=== PATIENT | male | born 1975 | race African-American/Black ===

== ENCOUNTER → 2018-04-27 | Outpatient (CLI) | payer MEDICARE, MEDICAID ==
[~2018-04-27] MED LIST: CALC-1038 PO; CARB200T6 PO
== END | disposition home or self-care (01) ==
LOC: RADPV 09:20
PROVIDERS: ATTEND Family Medicine
DX: M81.0 Age-related osteoporosis without current pathological fracture (principal)
CPT/HCPCS: 77080

== ENCOUNTER 2018-09-21 06:58 | Day surgery (SDC) | payer OTHER, MEDICARE, MEDICAID ==
[~2018-09-21] VITALS: Ht 170.2 cm; Wt 48.2 kg
[~2018-09-21 06:58] MED LIST changes: +ACET-784 PO; +ACET325T47 PO; +ALEN70TA48 PO; +AMPICILLIN SODIUM 1 GM/VIAL ONE; +ASCO500 PO; +BISA10SU22 PR; +CETI-290 PO; +GLYC1TAB11 PO; +MOM30 PO; +MULT-723 PO; +POLY17PO20 PO; +RINGERS SOLUTION,LACTATED 1,000 ML IV ONE; +VITAD1000 PO; +[UNRECOGNIZED DRUG - CODE] PO
[2018-09-21] MEDS ORDERED: LIDOCAINE/PF 2% 5 ML VIAL IM ONE (06:59)
[2018-09-21] MEDS ORDERED: DEXAMETHASONE SOD PHOS 4 MG/ML VIAL IVP ONE (06:59)
[2018-09-21] MEDS ORDERED: FentaNYL CITRATE-PF 100 MCG/2 ML VIAL IVP ONE (06:59)
[2018-09-21] MEDS ORDERED: KETAMINE HCL 50 MG/ML 10 ML VIAL IVP ONE (06:59)
[2018-09-21] MEDS ORDERED: PROPOFOL 1% 20 ML VIAL IVP ONE (06:59)
[2018-09-21] MEDS ORDERED: 0.9% SODIUM CHLORIDE 10 ML VIAL IVP ONE (06:59)
[2018-09-21] MEDS ORDERED: ONDANSETRON HCL 4 MG/2 ML VIAL IVP ONE (06:59)
[2018-09-21] MEDS ORDERED: EPHEDrine SULFATE 50 MG/ML VIAL IM ONE (06:59)
[2018-09-21] MEDS ORDERED: SUCCINYLCHOLINE CHLORIDE 20 MG/ML 10 ML VIAL IVP ONE (06:59)
[2018-09-21] MEDS ORDERED: HYDROmorphone 2 MG/ML SYRINGE IVP PRN (11:30)
[2018-09-21] MEDS ORDERED: FentaNYL CITRATE-PF 100 MCG/2 ML VIAL IVP PRN (11:30)
[2018-09-21] MEDS ORDERED: MEPERIDINE-PF 25 MG/ML VIAL IVP PRN (11:30)
[2018-09-21] MEDS ORDERED: OXYGEN THERAPY IH SCH (20:00)
== END 2018-09-21 13:00 | disposition home or self-care (01) ==
LOC: SURGERY 06:58
PROVIDERS: ATTEND Dentist General Practice
DX: K05.30 Chronic periodontitis, unspecified (principal); K04.7 Periapical abscess without sinus; M81.0 Age-related osteoporosis without current pathological fracture; F73 Profound intellectual disabilities; H54.7 Unspecified visual loss; H91.8X3 Other specified hearing loss, bilateral; Z86.69 Personal history of other diseases of the nervous system and sense organs; Z79.891 Long term (current) use of opiate analgesic; Z79.899 Other long term (current) drug therapy
CPT/HCPCS: 41899; 93005; J0290; J0330; J1100; J2405; J2704; J3010; J3490 ×3; J7120

== ENCOUNTER 2020-09-06 11:07 | Emergency (ER) | payer MEDICARE, MEDICAID ==
[~2020-09-06] VITALS: Ht 147.3 cm; Wt 53.0 kg
[~2020-09-06 11:07] MED LIST changes: -ACET325T47 PO; -ALEN70TA48 PO; +ALEN70TA65 PO; -AMPICILLIN SODIUM 1 GM/VIAL ONE; -CETI-290 PO; +CETI-450 PO; +CHOL100018 PO; -RINGERS SOLUTION,LACTATED 1,000 ML IV ONE; -VITAD1000 PO
[2020-09-06] MEDS ORDERED: LevETIRAcetam 1,000 MG in DEXTROSE 5%-WATER 100 ML IV ONE (11:15)
[2020-09-06 11:55] LABS: BASOPHILS % (AUTO) 0.4 % (0.0-2.0); EOSINOPHILS % (AUTO) 0.7 % (1.0-6.0); HEMATOCRIT 46.5 % (41-53); HEMOGLOBIN 15.5 g/dL (13.5-17.5); LYMPHOCYTES # (AUTO) 1.4 K/uL (1.0-4.8); LYMPHOCYTES % (AUTO) 10.6 % (22.0-44.0); MEAN CORPUSCULAR HEMOGLOBIN 31.9 pg (26.0-34.0); MEAN CORPUSCULAR HGB CONC 33.3 G/dL (31.0-37.0); MEAN CORPUSCULAR VOLUME 96 fL (80-100); MONOCYTES # (AUTO) 0.7 K/uL (0.1-1.0); MONOCYTES % (AUTO) 5.4 % (2.0-9.0); NEUTROPHILS # (AUTO) 11.1 K/uL (1.8-7.7); NEUTROPHILS % (AUTO) 82.9 % (40.0-70.0); PLATELET COUNT (AUTO) 297 K/uL (150-450); RED BLOOD CELL COUNT(AUTO) 4.85 MIL/uL (4.50-5.90); RED CELL DISTRIBUTION WIDTH 13.3 % (11.5-14.5)
[2020-09-06 12:05] LABS: ANION GAP 8 mmol/L (8-16); CALCIUM, TOTAL 8.8 mg/dL (8.8-10.5); CARBON DIOXIDE 26 mmol/L (22-29); CHLORIDE 105 mmol/L (98-107); CREATININE 0.99 mg/dL (0.60-1.30); GLOMERULAR FILTR. RATE CALC > 60 mL/min (>60); GLUCOSE,RANDOM 120 mg/dL (70-110); POTASSIUM 3.7 mmol/L (3.5-5.1); SODIUM SERUM 139 mmol/L (136-145); UREA NITROGEN, BLOOD 14 mg/dL (7-18)
[2020-09-06] MEDS ORDERED: SODIUM CHLORIDE 0.9% 1,000 ML IV ONE (12:15)
[2020-09-06 12:30] LABS: ALANINE AMINOTRANSFERASE 25 U/L (12-78); ALBUMIN 3.4 g/dL (3.4-5.0); ALKALINE PHOSPHATASE 71 U/L (46-116); ASPARTATE AMINOTRANSFERASE 19 U/L (15-37); BILIRUBIN,TOTAL 0.1 mg/dL (0.1-1.0); CARBAMAZEPINE (TEGRETOL) 6.3 mcg/mL (4.0-12.0); CREATINE KINASE, TOTAL ONLY 141 U/L (39-308); TOTAL PROTEIN, SERUM 8.3 g/dL (6.4-8.2)
[2020-09-06 12:33] LABS: B-TYPE NATRIURETIC PEPTIDE < 5 pg/mL (0-100)
[2020-09-06 14:30] VITALS: BP 115/75
== END 2020-09-06 15:00 | disposition home or self-care (01) ==
LOC: EMS 11:14
DX: G40.909 Epilepsy, unspecified, not intractable, without status epilepticus (principal)
CPT/HCPCS: 36415; 71045; 80053; 80156; 82550; 83880; 84484; 85025; 93005; 96361; 96365; 99285; J0712; J7030; J7060

== ENCOUNTER 2022-03-06 06:09 | Day surgery (SDC) | payer OTHER, MEDICARE, MEDICAID ==
[~2022-03-06 06:09] MED LIST changes: +BISA10SU11 PR; -BISA10SU22 PR; -CHOL100018 PO; +CHOL25TA4 PO; -GLYC1TAB11 PO; +GLYC1TAB27 PO; +LEVE500T20 PO; +MAGN-169 PO; -MOM30 PO; +MULT-413 PO; -MULT-723 PO
[2022-03-06] MEDS ORDERED: RINGERS SOLUTION,LACTATED 1,000 ML IV ONE ×2 (07:00→07:22)
[2022-03-06 07:36] LABS: COVID AG,FIA SOURCE NASAL SWAB
[2022-03-06 07:56] LABS: BASOPHILS % (AUTO) 0.5 % (0.0-2.0); HEMATOCRIT 46.4 % (41-53); HEMOGLOBIN 15.4 g/dL (13.5-17.5); LYMPHOCYTES # (AUTO) 1.9 K/uL (1.0-4.8); LYMPHOCYTES % (AUTO) 54.1 % (22.0-44.0); MEAN CORPUSCULAR HEMOGLOBIN 32.2 pg (26.0-34.0); MEAN CORPUSCULAR HGB CONC 33.3 G/dL (31.0-37.0); MEAN CORPUSCULAR VOLUME 97 fL (80-100); MONOCYTES # (AUTO) 0.4 K/uL (0.1-1.0); MONOCYTES % (AUTO) 10.8 % (2.0-9.0); NEUTROPHILS # (AUTO) 1.1 K/uL (1.8-7.7); NEUTROPHILS % (AUTO) 29.6 % (40.0-70.0); PLATELET COUNT (AUTO) 252 K/uL (150-450); RED BLOOD CELL COUNT(AUTO) 4.79 MIL/uL (4.50-5.90); RED CELL DISTRIBUTION WIDTH 12.6 % (11.5-14.5)
[2022-03-06 08:06] LABS: INR 1.1 (0.9-1.1); PROTHROMBIN TIME 11.2 SEC (9.4-11.6)
[2022-03-06 08:07] LABS: ANION GAP 5 mmol/L (8-16); CALCIUM, TOTAL 8.8 mg/dL (8.8-10.5); CARBON DIOXIDE 32 mmol/L (22-29); CHLORIDE 104 mmol/L (98-107); CREATININE 0.73 mg/dL (0.60-1.30); GLOMERULAR FILTR. RATE CALC > 60 mL/min (>60); GLUCOSE,RANDOM 82 mg/dL (70-110); POTASSIUM 4.4 mmol/L (3.5-5.1); SODIUM SERUM 141 mmol/L (136-145); UREA NITROGEN, BLOOD 10 mg/dL (7-18)
[2022-03-06 08:13] LABS: ALANINE AMINOTRANSFERASE 25 U/L (12-78); ALBUMIN 3.7 g/dL (3.4-5.0); ALKALINE PHOSPHATASE 83 U/L (46-116); ASPARTATE AMINOTRANSFERASE 22 U/L (15-37); BILIRUBIN,TOTAL 0.3 mg/dL (0.1-1.0); TOTAL PROTEIN, SERUM 8.2 g/dL (6.4-8.2)
[2022-03-06] MEDS ORDERED: AMPICILLIN SODIUM 2 GM/NS 100 ML IV ONE ×2 (08:28→08:30)
[2022-03-06] MEDS ORDERED: AMPICILLIN SODIUM 2 GM/NS 100 ML BAG IV ONE (11:10)
[2022-03-06] MEDS ORDERED: LIDOCAINE/PF 2% 5 ML VIAL IM ONE (12:00)
[2022-03-06] MEDS ORDERED: PROPOFOL 1% 20 ML VIAL IVP ONE (12:00)
[2022-03-06] MEDS ORDERED: ROCURONIUM BROMIDE 10 MG/ML 5 ML VIAL IVP ONE (12:00)
[2022-03-06] MEDS ORDERED: MIDAZOLAM HCL 2 MG/2 ML VIAL IVP ONE (12:00)
[2022-03-06] MEDS ORDERED: FentaNYL CITRATE PF 100 MCG/2 ML VIAL IVP ONE (12:00)
[2022-03-06] MEDS ORDERED: ONDANSETRON HCL 4 MG/2 ML VIAL IVP ONE (12:00)
== END 2022-03-06 13:30 | disposition home or self-care (01) ==
LOC: SURGERY 06:09
PROVIDERS: ATTEND Dentist General Practice
DX: K02.9 Dental caries, unspecified (principal); K03.6 Deposits [accretions] on teeth; K05.30 Chronic periodontitis, unspecified; G40.909 Epilepsy, unspecified, not intractable, without status epilepticus; K21.9 Gastro-esophageal reflux disease without esophagitis; I10 Essential (primary) hypertension; H54.7 Unspecified visual loss; H91.90 Unspecified hearing loss, unspecified ear; Z79.899 Other long term (current) drug therapy; Z98.890 Other specified postprocedural states; Z79.01 Long term (current) use of anticoagulants
CPT/HCPCS: 36415; 41899; 71045; 80053; 85025; 85610; 85730; 87426; 93005; C9803; J0290; J2250; J2405; J2704; J3010; J3490 ×2; J7120

== ENCOUNTER 2023-12-24 06:09 | Day surgery (SDC) | payer OTHER, MEDICARE, MEDICAID ==
[~2023-12-24 06:09] MED LIST changes: +CARB-92 PO; -CARB200T6 PO
[2023-12-24] MEDS ORDERED: AMPICILLIN SODIUM 2 GM/NS 100 ML IV ONE (07:46)
[2023-12-24] MEDS ORDERED: RINGERS SOLUTION,LACTATED 1,000 ML IV ONE (08:00)
[2023-12-24 08:16] LABS: BASOPHILS % (AUTO) 1.2 % (0.0-2.0); EOSINOPHILS % (AUTO) 8.7 % (1.0-6.0); HEMATOCRIT 40.5 % (41-53); HEMOGLOBIN 13.2 g/dL (13.5-17.5); LYMPHOCYTES # (AUTO) 1.9 K/uL (1.0-4.8); LYMPHOCYTES % (AUTO) 47.4 % (22.0-44.0); MEAN CORPUSCULAR HGB CONC 32.6 G/dL (31.0-37.0); MEAN CORPUSCULAR VOLUME 95 fL (80-100); MONOCYTES # (AUTO) 0.4 K/uL (0.1-1.0); MONOCYTES % (AUTO) 10.4 % (2.0-9.0); NEUTROPHILS # (AUTO) 1.3 K/uL (1.8-7.7); NEUTROPHILS % (AUTO) 32.3 % (40.0-70.0); PLATELET COUNT (AUTO) 324 K/uL (150-450); RED BLOOD CELL COUNT(AUTO) 4.26 MIL/uL (4.50-5.90); RED CELL DISTRIBUTION WIDTH 13.3 % (11.5-14.5); WHITE BLOOD COUNT (AUTO) 3.9 K/uL (4.5-11.0)
[2023-12-24 08:26] LABS: ANION GAP 7 mmol/L (8-16); CALCIUM, TOTAL 9.1 mg/dL (8.8-10.5); CARBON DIOXIDE 30 mmol/L (22-29); CHLORIDE 103 mmol/L (98-107); CREATININE 0.81 mg/dL (0.60-1.30); GLOMERULAR FILTR. RATE CALC > 60 mL/min (>60); GLUCOSE,RANDOM 75 mg/dL (70-110); POTASSIUM 4.7 mmol/L (3.5-5.1); SODIUM SERUM 140 mmol/L (136-145); UREA NITROGEN, BLOOD 15 mg/dL (7-18)
[2023-12-24 08:29] LABS: INR 1.1 (0.9-1.1); PROTHROMBIN TIME 11.2 SEC (9.4-11.6)
[2023-12-24 08:32] LABS: ALANINE AMINOTRANSFERASE 24 U/L (12-78); ALBUMIN 3.7 g/dL (3.4-5.0); ALKALINE PHOSPHATASE 91 U/L (46-116); ASPARTATE AMINOTRANSFERASE 24 U/L (15-37); BILIRUBIN,TOTAL 0.2 mg/dL (0.1-1.0); TOTAL PROTEIN, SERUM 8.1 g/dL (6.4-8.2)
[2023-12-24] MEDS ORDERED: SUGAMMADEX SODIUM 200 MG/2 ML VIAL IVP ONE (12:00)
[2023-12-24] MEDS ORDERED: ROCURONIUM BROMIDE 10 MG/ML 5 ML VIAL IVP ONE (12:00)
[2023-12-24] MEDS ORDERED: DEXAMETHASONE SOD PHOS 4 MG/ML VIAL IVP ONE (12:00)
[2023-12-24] MEDS ORDERED: LIDOCAINE/PF 2% 5 ML VIAL IM ONE (12:00)
[2023-12-24] MEDS ORDERED: PROPOFOL 1% 20 ML VIAL IVP ONE (12:00)
[2023-12-24] MEDS ORDERED: ONDANSETRON HCL 4 MG/2 ML VIAL IVP ONE (12:00)
== END 2023-12-24 10:55 | disposition home or self-care (01) ==
LOC: SURGERY 06:09
PROVIDERS: ATTEND Dentist General Practice
DX: K05.30 Chronic periodontitis, unspecified (principal); K03.6 Deposits [accretions] on teeth; K21.9 Gastro-esophageal reflux disease without esophagitis; I10 Essential (primary) hypertension; H91.90 Unspecified hearing loss, unspecified ear; Z79.899 Other long term (current) drug therapy; Z79.01 Long term (current) use of anticoagulants; G43.909 Migraine, unspecified, not intractable, without status migrainosus; M81.0 Age-related osteoporosis without current pathological fracture; Z98.890 Other specified postprocedural states
CPT/HCPCS: 41899; 71045; 80053; 85025; 85610; 85730; 36415; 93005; J0290; J2704; J1100; J3490 ×2; J2405; Q9967

== ENCOUNTER 2024-11-01 22:26 | Inpatient (IN) | payer OTHER ==
[~2024-11-01] VITALS: Ht 157.5 cm; Wt 40.9 kg
[~2024-11-01 22:26] MED LIST changes: +LEVE-71 PO; -LEVE500T20 PO
[2024-11-01 23:07] LABS: COVID AG,FIA SOURCE NASAL SWAB
[2024-11-01 23:34] LABS: SARS-COV2 (COVID) ANTIGEN,FIA Negative (Negative)
[2024-11-01 23:35] LABS: INFLUENZA TYPE B NEGATIVE FOR TYPE B (NEGATIVE)
[2024-11-01] MEDS ORDERED: 0.9% SODIUM CHLORIDE 10 ML SYRINGE IVP PRN (23:45)
[2024-11-01 23:58] LABS: INFLUENZA TYPE A POSITIVE FOR TYPE A (NEGATIVE)
[2024-11-02 00:05] LABS: LYMPHOCYTES # (AUTO) 1.1 K/uL (1.0-4.8); LYMPHOCYTES % (AUTO) 22.3 % (22.0-44.0); MONOCYTES # (AUTO) 0.7 K/uL (0.1-1.0); NEUTROPHILS # (AUTO) 3.1 K/uL (1.8-7.7)
[2024-11-02 00:07] LABS: BASOPHILS % (AUTO) 0.4 % (0.0-2.0); EOSINOPHILS % (AUTO) 0.2 % (1.0-6.0); HEMATOCRIT 42.3 % (41-53); HEMOGLOBIN 13.7 g/dL (13.5-17.5); MEAN CORPUSCULAR HEMOGLOBIN 28.1 pg (26.0-34.0); MEAN CORPUSCULAR HGB CONC 32.5 G/dL (31.0-37.0); MEAN CORPUSCULAR VOLUME 87 fL (80-100); MONOCYTES % (AUTO) 13.6 % (2.0-9.0); NEUTROPHILS % (AUTO) 63.5 % (40.0-70.0); PLATELET COUNT (AUTO) 279 K/uL (150-450); RED BLOOD CELL COUNT(AUTO) 4.88 MIL/uL (4.50-5.90); RED CELL DISTRIBUTION WIDTH 20.1 % (11.5-14.5); WHITE BLOOD COUNT (AUTO) 4.9 K/uL (4.5-11.0)
[2024-11-02 00:19] LABS: PROTHROMBIN TIME 11.5 SEC (9.4-11.6)
[2024-11-02 00:24] LABS: ANION GAP 9 mmol/L (8-16); CALCIUM, TOTAL 8.8 mg/dL (8.8-10.5); CARBON DIOXIDE 29 mmol/L (22-29); CHLORIDE 102 mmol/L (98-107); CREATININE 1.17 mg/dL (0.60-1.30); GLOMERULAR FILTR. RATE CALC > 60 mL/min (>60); GLUCOSE,RANDOM 94 mg/dL (70-110); POTASSIUM 3.9 mmol/L (3.5-5.1); SODIUM SERUM 140 mmol/L (136-145); UREA NITROGEN, BLOOD 10 mg/dL (7-18)
[2024-11-02 00:30] LABS: LACTIC ACID 2.7 mmol/L (0.4-2.0)
[2024-11-02] MEDS ORDERED: ACETAMINOPHEN 325 MG TABLET PO PRN (00:30)
[2024-11-02] MEDS ORDERED: ALBUTEROL SULFATE 2.5 MG/0.5 ML NEB SOLUTION NEB PRN (00:30)
[2024-11-02] MEDS ORDERED: IPRATROPIUM BROMIDE 0.5 MG/2.5 ML NEB SOLUTION NEB PRN (00:30)
[2024-11-02] MEDS: CefTRIAXone 1 GM/DEXTROSE 50 ML IV ONE (01:37)
[2024-11-02] MEDS: SODIUM CHLORIDE 0.9% 2,100 ML IV ONE (01:37)
[2024-11-02 02:15] LABS: APPEARANCE,URINE CLEAR (CLEAR); BILIRUBIN,URINE NEGATIVE (NEGATIVE); COLOR,URINE YELLOW (YELLOW); GLUCOSE, URINE (UA) NEGATIVE (NEGATIVE); KETONES,URINE 40-60 mg/dL (NEGATIVE); LEUKOCYTE ESTERASE ,URINE NEGATIVE (NEGATIVE); NITRATE,URINE NEGATIVE (NEGATIVE); OCCULT BLOOD,URINE SMALL (NEGATIVE); PROTEIN,URINE 30-70 mg/dL (NEGATIVE); SPECIFIC GRAVITIY, URINE 1.037 (1.003-1.030); UROBILINOGEN,URINE <=1.0 mg/dL (<=1.0)
[2024-11-02 03:03] LABS: BACTERIA,URINE None Seen /HPF (None Seen); SQUAMOUS EPITHELIAL CELL,UR Few /LPF (None Seen); WBC,URINE None Seen /HPF (0-5)
[2024-11-02] MEDS ORDERED: MAGNESIUM HYDROXIDE SUSPENSION 30 ML UDCUP PO PRN (07:00)
[2024-11-02] MEDS ORDERED: OSELTAMIVIR PHOSPHATE 75 MG CAPSULE PO SCH (09:00)
[2024-11-02 09:48] VITALS: BP 144/80; PULSE 82; RESP 16; TEMP 98.2; O2SAT 98
[2024-11-02] MEDS: ASCORBIC ACID 500 MG TABLET PO SCH (11:00)
[2024-11-02] MEDS: RINGERS SOLUTION,LACTATED 1,000 ML IV SCH (11:00)
[2024-11-02] MEDS: LevETIRAcetam 500 MG TABLET PO SCH (11:00)
[2024-11-02] MEDS: CHOLECALCIFEROL (VIT D3) 1,000 UNITS [25 MCG] TABLET PO SCH (11:01)
[2024-11-02] MEDS: CarBAMazepine 200 MG TABLET PO SCH ×2 (11:31→21:00)
[2024-11-02] MEDS: CETIRIZINE HCL 10 MG TABLET PO SCH (11:32)
[2024-11-02] MEDS: OSELTAMIVIR PHOSPHATE 30 MG CAPSULE PO SCH (11:32)
[2024-11-02] MEDS: GLYCOPYRROLATE 1 MG TABLET PO SCH ×2 (11:32→21:00)
[2024-11-02 16:11] VITALS: BP 146/82; PULSE 88; RESP 18; TEMP 98; O2SAT 98
[2024-11-02] MEDS: CALCIUM [CALCIUM CARB 1250MG] 500 MG TABLET PO SCH (21:00)
[2024-11-02 21:25] VITALS: BP 149/90; PULSE 90; RESP 20; TEMP 97.9; O2SAT 99
[2024-11-02] MEDS: LevETIRAcetam 500 MG in DEXTROSE 5%-WATER 100 ML IV SCH (22:05)
[2024-11-03] MEDS: CefTRIAXone 1 GM/DEXTROSE 50 ML IV SCH (00:32)
[2024-11-03 06:08] VITALS: BP 146/74; PULSE 68; RESP 20; TEMP 97.8; O2SAT 100
[2024-11-03 07:23] LABS: HEMATOCRIT 38.8 % (41-53); HEMOGLOBIN 12.8 g/dL (13.5-17.5); MEAN CORPUSCULAR HEMOGLOBIN 28.5 pg (26.0-34.0); MEAN CORPUSCULAR HGB CONC 33.1 G/dL (31.0-37.0); MEAN CORPUSCULAR VOLUME 86 fL (80-100); PLATELET COUNT (AUTO) 234 K/uL (150-450); RED BLOOD CELL COUNT(AUTO) 4.51 MIL/uL (4.50-5.90); RED CELL DISTRIBUTION WIDTH 19.4 % (11.5-14.5); WHITE BLOOD COUNT (AUTO) 3.7 K/uL (4.5-11.0)
[2024-11-03 07:31] LABS: ANION GAP 8 mmol/L (8-16); CALCIUM, TOTAL 8.2 mg/dL (8.8-10.5); CARBON DIOXIDE 27 mmol/L (22-29); CHLORIDE 106 mmol/L (98-107); CREATININE 0.81 mg/dL (0.60-1.30); GLOMERULAR FILTR. RATE CALC > 60 mL/min (>60); GLUCOSE,RANDOM 92 mg/dL (70-110); POTASSIUM 3.6 mmol/L (3.5-5.1); SODIUM SERUM 141 mmol/L (136-145); UREA NITROGEN, BLOOD 8 mg/dL (7-18)
[2024-11-03 08:16] VITALS: BP 129/75; PULSE 72; RESP 18; TEMP 97.8; O2SAT 99
[2024-11-03 08:16] LABS: BAND NEUTROPHILS % (MANUAL) 1 % (0-5); LYMPHOCYTES % (MANUAL) 41 % (22-44); MONOCYTES % (MANUAL) 13 % (2-9); RBC MORPHOLOGY COMMENT NORMAL RBC MORPH; SEGMENTED NEUTROPHILS % 45 % (40-70); TOTAL CELLS COUNTED 100
[2024-11-03] MEDS ORDERED: SODIUM CHLORIDE 0.9% 0 ML ONE ×2 (14:37→23:12)
[2024-11-03] MEDS: 1: MAGNESIUM SULFATE 2 GM, MVI, ADULT NO.1 WITH VIT K 10 ML, THIAMINE 100 MG, FOLIC ACID IV SCH (14:40)
[2024-11-03 16:41] VITALS: BP 134/76; PULSE 76; RESP 20; TEMP 97.9; O2SAT 96
[2024-11-03 19:50] VITALS: BP 137/85; PULSE 62; RESP 18; TEMP 97.4; O2SAT 96
[2024-11-04 04:00] VITALS: BP 154/74; PULSE 55; RESP 18; TEMP 97.7; O2SAT 100
[2024-11-04 08:42] VITALS: BP 137/83; PULSE 55; RESP 18; TEMP 98.2; O2SAT 100
[2024-11-04 19:47] VITALS: BP 135/59; PULSE 51; RESP 18; TEMP 97.4; O2SAT 96
[2024-11-04] MEDS ORDERED: SODIUM CHLORIDE 0.9% 1,000 ML ONE (21:03)
[2024-11-05 04:00] VITALS: BP 158/80; PULSE 58; RESP 20; TEMP 97.7; O2SAT 100
[2024-11-05 08:17] VITALS: BP 141/74; PULSE 56; RESP 18; TEMP 97; O2SAT 99
[2024-11-05] MEDS ORDERED: SODIUM CHLORIDE 0.9% 500 ML IV ONE (09:18)
[2024-11-05] MEDS ORDERED: ATOR20TA65 PO (11:44)
[2024-11-05] MEDS ORDERED: LANS30TA15 PO (11:44)
[2024-11-05] MEDS ORDERED: LEVE10006 PO (11:44)
[2024-11-05] MEDS ORDERED: GABA-529 PO (11:44)
[2024-11-05] MEDS ORDERED: IPRA15SP4 NASAL (11:44)
[2024-11-05] MEDS ORDERED: FLUT16H NASAL (11:44)
[2024-11-05] MEDS: AmLODIPine BESYLATE 5 MG TABLET PO SCH (11:45)
[2024-11-05] MEDS: DEXTROSE 5%-0.45% SODIUM CHL 1,000 ML IV SCH (17:29)
[2024-11-05 17:57] VITALS: BP 128/80; PULSE 53; RESP 18; TEMP 97.9; O2SAT 92
[2024-11-05 19:35] VITALS: BP 140/67; PULSE 60; RESP 18; TEMP 97.7; O2SAT 97
[2024-11-06 04:25] VITALS: BP 144/75; PULSE 58; RESP 19; TEMP 97.7; O2SAT 100
[2024-11-06 07:38] LABS: HEMATOCRIT 38.8 % (41-53); HEMOGLOBIN 12.7 g/dL (13.5-17.5); MEAN CORPUSCULAR HEMOGLOBIN 28.1 pg (26.0-34.0); MEAN CORPUSCULAR HGB CONC 32.9 G/dL (31.0-37.0); MEAN CORPUSCULAR VOLUME 86 fL (80-100); PLATELET COUNT (AUTO) 250 K/uL (150-450); RED BLOOD CELL COUNT(AUTO) 4.53 MIL/uL (4.50-5.90); RED CELL DISTRIBUTION WIDTH 18.7 % (11.5-14.5); WHITE BLOOD COUNT (AUTO) 2.3 K/uL (4.5-11.0)
[2024-11-06 07:52] LABS: ANION GAP 9 mmol/L (8-16); CALCIUM, TOTAL 8.5 mg/dL (8.8-10.5); CARBON DIOXIDE 29 mmol/L (22-29); CHLORIDE 104 mmol/L (98-107); CREATININE 0.79 mg/dL (0.60-1.30); GLOMERULAR FILTR. RATE CALC > 60 mL/min (>60); GLUCOSE,RANDOM 94 mg/dL (70-110); POTASSIUM 3.3 mmol/L (3.5-5.1); SODIUM SERUM 142 mmol/L (136-145); UREA NITROGEN, BLOOD 3 mg/dL (7-18)
[2024-11-06 08:37] LABS: BAND NEUTROPHILS % (MANUAL) 0 % (0-5)
[2024-11-06 08:45] LABS: BASOPHILS % (MANUAL) 2 % (0-2); EOSINOPHILS % (MANUAL) 1 % (1-6); LYMPHOCYTES % (MANUAL) 35 % (22-44); MONOCYTES % (MANUAL) 7 % (2-9); REACTIVE LYMPHOCYTES 10 % (0-0); SEGMENTED NEUTROPHILS % 45 % (40-70); TOTAL CELLS COUNTED 100
[2024-11-06 09:48] VITALS: BP 140/76; PULSE 47; PULSE 77; RESP 20; TEMP 97.2; O2SAT 100
[2024-11-06] MEDS: MEGESTROL ACETATE 40 MG TABLET PO SCH (14:37)
[2024-11-06 17:25] VITALS: BP 158/78; PULSE 50; RESP 18; TEMP 97.6; O2SAT 100
[2024-11-06 20:03] VITALS: BP 141/75; PULSE 55; RESP 17; TEMP 97.5; O2SAT 99
[2024-11-07 04:46] VITALS: BP 129/74; PULSE 54; RESP 18; TEMP 97.2; O2SAT 99
[2024-11-07 08:55] LABS: BASOPHILS % (AUTO) 1.2 % (0.0-2.0); EOSINOPHILS % (AUTO) 6.2 % (1.0-6.0); HEMATOCRIT 38.1 % (41-53); HEMOGLOBIN 12.4 g/dL (13.5-17.5); LYMPHOCYTES # (AUTO) 1.8 K/uL (1.0-4.8); LYMPHOCYTES % (AUTO) 53.9 % (22.0-44.0); MEAN CORPUSCULAR HEMOGLOBIN 27.9 pg (26.0-34.0); MEAN CORPUSCULAR HGB CONC 32.5 G/dL (31.0-37.0); MEAN CORPUSCULAR VOLUME 86 fL (80-100); MONOCYTES # (AUTO) 0.3 K/uL (0.1-1.0); MONOCYTES % (AUTO) 9.1 % (2.0-9.0); NEUTROPHILS % (AUTO) 29.6 % (40.0-70.0); PLATELET COUNT (AUTO) 283 K/uL (150-450); RED BLOOD CELL COUNT(AUTO) 4.44 MIL/uL (4.50-5.90); WHITE BLOOD COUNT (AUTO) 3.4 K/uL (4.5-11.0)
[2024-11-07 09:08] LABS: ANION GAP 6 mmol/L (8-16); CALCIUM, TOTAL 8.2 mg/dL (8.8-10.5); CARBON DIOXIDE 30 mmol/L (22-29); CHLORIDE 105 mmol/L (98-107); CREATININE 0.77 mg/dL (0.60-1.30); GLOMERULAR FILTR. RATE CALC > 60 mL/min (>60); GLUCOSE,RANDOM 91 mg/dL (70-110); POTASSIUM 3.3 mmol/L (3.5-5.1); SODIUM SERUM 141 mmol/L (136-145); UREA NITROGEN, BLOOD 3 mg/dL (7-18)
[2024-11-07 18:51] VITALS: BP 95/56; PULSE 68; RESP 16; TEMP 99; O2SAT 99
[2024-11-07 19:55] VITALS: BP 106/59; PULSE 65; RESP 18; TEMP 97.7; O2SAT 100
[2024-11-08 04:45] VITALS: BP 132/73; PULSE 54; RESP 18; TEMP 97.8; O2SAT 100
[2024-11-08 06:45] LABS: BASOPHILS % (AUTO) 0.8 % (0.0-2.0); EOSINOPHILS % (AUTO) 5.3 % (1.0-6.0); HEMATOCRIT 36.6 % (41-53); HEMOGLOBIN 11.9 g/dL (13.5-17.5); LYMPHOCYTES # (AUTO) 1.8 K/uL (1.0-4.8); LYMPHOCYTES % (AUTO) 42.2 % (22.0-44.0); MEAN CORPUSCULAR HEMOGLOBIN 27.6 pg (26.0-34.0); MEAN CORPUSCULAR HGB CONC 32.5 G/dL (31.0-37.0); MEAN CORPUSCULAR VOLUME 85 fL (80-100); MONOCYTES # (AUTO) 0.3 K/uL (0.1-1.0); MONOCYTES % (AUTO) 7.5 % (2.0-9.0); NEUTROPHILS # (AUTO) 1.9 K/uL (1.8-7.7); NEUTROPHILS % (AUTO) 44.2 % (40.0-70.0); PLATELET COUNT (AUTO) 296 K/uL (150-450); RED BLOOD CELL COUNT(AUTO) 4.31 MIL/uL (4.50-5.90); RED CELL DISTRIBUTION WIDTH 18.4 % (11.5-14.5); WHITE BLOOD COUNT (AUTO) 4.4 K/uL (4.5-11.0)
[2024-11-08 07:03] LABS: ANION GAP 6 mmol/L (8-16); CALCIUM, TOTAL 8.1 mg/dL (8.8-10.5); CARBON DIOXIDE 29 mmol/L (22-29); CHLORIDE 104 mmol/L (98-107); CREATININE 0.75 mg/dL (0.60-1.30); GLOMERULAR FILTR. RATE CALC > 60 mL/min (>60); GLUCOSE,RANDOM 95 mg/dL (70-110); SODIUM SERUM 140 mmol/L (136-145); UREA NITROGEN, BLOOD 2 mg/dL (7-18)
[2024-11-08 08:55] VITALS: BP 119/69; PULSE 50; RESP 18; TEMP 97.7; O2SAT 99
[2024-11-08 17:00] VITALS: BP 128/55; PULSE 65; RESP 20; TEMP 99.1; O2SAT 98
[2024-11-08] MEDS: POLYETHYLENE GLYCOL 3350 17 GM PACKET PO PRN (21:22)
[2024-11-08 21:26] VITALS: BP 127/74; PULSE 61; RESP 18; TEMP 97.7; O2SAT 96
[2024-11-08] MEDS: POTASSIUM CHLORIDE 20 MEQ ER TABLET PO PRN (23:38)
[2024-11-09 05:26] VITALS: BP 136/74; PULSE 66; RESP 18; TEMP 97.8; O2SAT 100
[2024-11-09] MEDS ORDERED: ALENDRONATE SODIUM 70 MG TABLET PO SCH (06:30)
[2024-11-09] MEDS: BISACODYL 10 MG RECTAL RECTAL SUPPOSITORY PR PRN (11:19)
[2024-11-09 16:00] VITALS: BP 132/55; PULSE 54; RESP 18; TEMP 98.5; O2SAT 98
[2024-11-09 21:00] VITALS: BP 137/75; PULSE 77; RESP 18; TEMP 97.8; O2SAT 92
[2024-11-09] MEDS ORDERED: SODIUM CHLORIDE 0.9% 500 ML IV ONE (21:36)
[2024-11-10 07:58] VITALS: BP 137/70; PULSE 51; RESP 18; TEMP 98.1; O2SAT 100
[2024-11-10 14:20] LABS: ANION GAP 7 mmol/L (8-16); CALCIUM, TOTAL 8.1 mg/dL (8.8-10.5); CARBON DIOXIDE 29 mmol/L (22-29); CHLORIDE 104 mmol/L (98-107); CREATININE 0.79 mg/dL (0.60-1.30); GLOMERULAR FILTR. RATE CALC > 60 mL/min (>60); GLUCOSE,RANDOM 92 mg/dL (70-110); POTASSIUM 3.3 mmol/L (3.5-5.1); SODIUM SERUM 140 mmol/L (136-145); UREA NITROGEN, BLOOD 3 mg/dL (7-18)
[2024-11-10] MEDS: POTASSIUM CHL 10 MEQ/WATER 50 ML IV PRN (15:08)
[2024-11-10 16:09] VITALS: BP 131/68; PULSE 50; RESP 18; TEMP 96.4; O2SAT 100
[2024-11-10 20:58] VITALS: BP 140/57; PULSE 83; RESP 18; TEMP 98.5; O2SAT 96
[2024-11-11] MEDS ORDERED: SODIUM CHLORIDE 0.9% 1,000 ML ONE (05:52)
[2024-11-11] MEDS ORDERED: FLUMAZENIL 0.1 MG/ML 5 ML VIAL IVP ONE (06:43)
[2024-11-11] MEDS ORDERED: EPINEPHrine 1:10,000 [1 MG/10 ML] SYRINGE ONE (06:43)
[2024-11-11] MEDS ORDERED: NALOXONE HCL 0.4 MG/ML VIAL ONE (06:43)
[2024-11-11] MEDS ORDERED: DiphenhydrAMINE HCL 50 MG/ML VIAL ONE (06:43)
[2024-11-11] MEDS ORDERED: SODIUM TETRADECYL SULFATE 3% 60 MG/2 ML VIAL IVP ONE (06:43)
[2024-11-11] MEDS ORDERED: ATROPINE SULFATE 0.1 MG/ML 10 ML SYRINGE IVP ONE (06:44)
[2024-11-11] MEDS: SODIUM CHLORIDE 0.9% 1,000 ML IV ONE (06:50)
[2024-11-11 07:21] VITALS: BP 139/72; PULSE 73; RESP 18; TEMP 97.7; O2SAT 100
[2024-11-11] MEDS ORDERED: PROPOFOL 1% 20 ML VIAL IVP ONE (12:00)
[2024-11-11] MEDS ORDERED: LIDOCAINE/PF 2% 5 ML SYRINGE IVP ONE (12:00)
[2024-11-11] MEDS ORDERED: GLYCOPYRROLATE 0.2 MG/ML VIAL IM ONE (12:00)
[2024-11-11 15:54] VITALS: BP 162/77; PULSE 61; RESP 18; TEMP 98.1; O2SAT 99
[2024-11-11 19:44] VITALS: BP 136/76; PULSE 55; RESP 18; TEMP 98; O2SAT 98
[2024-11-11] MEDS: LevETIRAcetam 500 MG TABLET PEG SCH (21:21)
[2024-11-12 05:21] VITALS: BP 142/88; PULSE 63; RESP 18; TEMP 97.9; O2SAT 100
[2024-11-12 07:58] VITALS: BP 162/69; PULSE 54; RESP 18; TEMP 98.1; O2SAT 100
== END 2024-11-12 09:00 | DRG 871 ==
LOC: EMS 11-02 06:02 → EDH 11-02 06:53 → 6S 11-02 10:21 → 4E 11-05 16:44
PROVIDERS: ADMIT Internal Medicine; ATTEND Internal Medicine
PROC: 05HC33Z Insertion of Infusion Device into Left Basilic Vein, Percutaneous Approach (ICD-10-PCS; principal; 2024-11-03)
PROC: B54NZZA Ultrasonography of Left Upper Extremity Veins, Guidance (ICD-10-PCS; 2024-11-03)
PROC: GZ56ZZZ Individual Psychotherapy, Supportive (ICD-10-PCS; 2024-11-09)
PROC: 0DH63UZ Insertion of Feeding Device into Stomach, Percutaneous Approach (ICD-10-PCS; 2024-11-11)
DX: A41.9 Sepsis, unspecified organism (principal); E43 Unspecified severe protein-calorie malnutrition; F73 Profound intellectual disabilities; Z68.1 Body mass index [BMI] 19.9 or less, adult; J10.1 Influenza due to other identified influenza virus with other respiratory manifestations; G40.909 Epilepsy, unspecified, not intractable, without status epilepticus; M81.0 Age-related osteoporosis without current pathological fracture; I10 Essential (primary) hypertension; Z20.822 Contact with and (suspected) exposure to COVID-19; K29.60 Other gastritis without bleeding; K29.80 Duodenitis without bleeding; R13.10 Dysphagia, unspecified; R62.50 Unspecified lack of expected normal physiological development in childhood; F29 Unspecified psychosis not due to a substance or known physiological condition; Z74.01 Bed confinement status; Z79.899 Other long term (current) drug therapy
CPT/HCPCS: 36245; 36569; 70490; 71045; 76937; 80048; 81001; 83605; 83735; 84132; 84145; 85025; 85610; 87040; 87481; 87804; 92610; 93005; 99291; G0378; J0171; J0461; J0696; J0712; J1200; J2310; J2704; J3411; J3475; J3480; J3490; J7030; J7040; J7060; J7120; 36415-L1; 36415-TC

== ENCOUNTER 2025-06-08 06:36 | Day surgery (SDC) | payer OTHER ==
[~2025-06-08] VITALS: Ht 162.6 cm; Wt 49.5 kg
[~2025-06-08 06:36] MED LIST changes: +ATOR20TA65 PO; -CETI-450 PO; +CETI10TA77 PO; +FLUT16H NASAL; +GABA-529 PO; +IPRA15SP4 NASAL; +LANS30TA15 PO; -LEVE-71 PO; +LEVE100023 PO; +SODIUM CHLORIDE 0.9% 1,000 ML IV ONE
[2025-06-08] MEDS ORDERED: AMPICILLIN SODIUM 2 GM/NS 100 ML IV ONE (07:31)
[2025-06-08] MEDS ORDERED: RINGERS SOLUTION,LACTATED 1,000 ML IV ONE (07:34)
[2025-06-08 07:57] LABS: CALCIUM, TOTAL 9.3 mg/dL (8.8-10.5); CREATININE 0.82 mg/dL (0.60-1.30); GLOMERULAR FILTR. RATE CALC > 60 mL/min (>60); GLUCOSE,RANDOM 94 mg/dL (70-110); SODIUM SERUM 140 mmol/L (136-145); UREA NITROGEN, BLOOD 15 mg/dL (7-18)
[2025-06-08 08:01] LABS: ASPARTATE AMINOTRANSFERASE 22 U/L (15-37); TOTAL PROTEIN, SERUM 8.0 g/dL (6.4-8.2)
[2025-06-08 09:00] LABS: PLATELET COUNT (AUTO) 269 K/uL (150-450); RED BLOOD CELL COUNT(AUTO) 4.39 MIL/uL (4.50-5.90); RED CELL DISTRIBUTION WIDTH 14.6 % (11.5-14.5); WHITE BLOOD COUNT (AUTO) 2.9 K/uL (4.5-11.0)
[2025-06-08 09:03] LABS: BAND NEUTROPHILS % (MANUAL) 0 % (0-5)
[2025-06-08 09:16] LABS: EOSINOPHILS % (MANUAL) 1 % (1-6); LYMPHOCYTES % (MANUAL) 62 % (22-44); MONOCYTES % (MANUAL) 3 % (2-9); RBC MORPHOLOGY COMMENT NORMAL RBC MORPH; SEGMENTED NEUTROPHILS % 34 % (40-70)
[2025-06-08] MEDS: RINGERS SOLUTION,LACTATED 1,000 ML IV ONE (11:07)
[2025-06-08] MEDS ORDERED: ROCURONIUM BROMIDE 10 MG/ML 5 ML VIAL ONE (12:00)
[2025-06-08] MEDS ORDERED: ONDANSETRON HCL 4 MG/2 ML VIAL ONE (12:00)
[2025-06-08] MEDS ORDERED: PROPOFOL 1% 20 ML VIAL IVP ONE (12:00)
[2025-06-08] MEDS ORDERED: LIDOCAINE/PF 2% 5 ML VIAL ONE (12:00)
[2025-06-08] MEDS ORDERED: GLYCOPYRROLATE 0.2 MG/ML VIAL ONE (12:00)
[2025-06-08] MEDS ORDERED: DEXAMETHASONE SOD PHOS 4 MG/ML VIAL ONE (12:00)
== END 2025-06-08 14:35 | disposition home or self-care (01) ==
LOC: SDS 06:36
PROVIDERS: ATTEND Dentist General Practice
DX: K05.6 Periodontal disease, unspecified (principal); K02.9 Dental caries, unspecified; K05.20 Aggressive periodontitis, unspecified; E78.5 Hyperlipidemia, unspecified
CPT/HCPCS: 41899; 71045; 80053; 85025; 85610; 85730; 36415; 93005; J0290; J2704; J1100; J3490 ×3; J2405; J7120